=== PATIENT | female | born 1955 | race Caucasian/White ===

== ENCOUNTER 2019-08-18 12:03 | Emergency (ER) | payer BC ==
[2019-08-18] MEDS ORDERED: Sodium Chloride 0.9% 10 ML Syringe FLUSH PRN (12:35)
[2019-08-18] MEDS ORDERED: Ondansetron 4 MG/2 ML SDV IVPUSH ONE (12:35)
[2019-08-18] MEDS ORDERED: Famotidine 20 MG/2 ML SDV IVPUSH ONE (12:35)
[2019-08-18] MEDS ORDERED: Sodium Chloride 0.9% 1,000 ML IV SCH (12:45)
--- NOTE | 2019-08-18 13:46 | EDM.PDOC ---
ED HPI GENERAL MEDICAL PROBLEM - General Chief Complaint: Gastrointestinal Problem Stated Complaint: NAUSEA X 4DAYS Time Seen by Provider: 08/18/19 12:11 Source of Information: Reports: Patient, RN Notes Reviewed - History of Present Illness INITIAL COMMENTS - FREE TEXT/NARRATIVE: 64 year old female comes in with onset of nausea, vomiting and abd pain 3 1/2 days ago. She had severe repetitve vomiting for over 24 hours. She has been trying some clear liquids but did vomit again this am after trying some clear soup. Possible low grade fever. No current chest pain or difficulty breathing. Mild generalized abd achiness, no severe localized pain at this time. Generalized Pain Score (Numeric/FACES): 5 - Related Data Allergies Allergy/AdvReac Type Severity Reaction Status Date / Time No Known Allergies Allergy Verified 08/18/19 12:12 Home Meds: Home Meds Ondansetron [Zofran ODT] 4 mg PO Q8HR PRN #7 tab.dis 08/18/19 [Rx] Simvastatin [Zocor] 40 mg PO BEDTIME 08/18/19 [History] Past Medical History HEENT History: Reports: Other (See Below) Other HEENT History: eye lid surgery, glasses Cardiovascular History: Reports: High Cholesterol [employer] History: Reports: Musculoskeletal History: Reports: Other (See Below) Other Musculoskeletal History: l ankle and l knee surgery Social & Family History - Tobacco Use Smoking Status *Q: Never Smoker Second Hand Smoke Exposure: No - Caffeine Use Caffeine Use: Reports: Coffee, Soda - Recreational Drug Use Recreational Drug Use: No ED ROS GENERAL - Review of Systems Review Of Systems: See Below Constitutional: Reports: Chills HEENT: Reports: No Symptoms Respiratory: Reports: No Symptoms Cardiovascular: Denies: Chest Pain GI/Abdominal: Reports: Abdominal Pain, Nausea, Vomiting. Denies: Diarrhea, Hematochezia, Melena : Reports: No Symptoms Musculoskeletal: Denies: Neck Pain, Shoulder Pain, Back Pain Skin: Reports: No Symptoms Neurological: Reports: Dizziness. Denies: Numbness, Tingling, Trouble Speaking , Weakness ED EXAM, GI/ABD - Physical Exam Exam: See Below General Appearance: Alert, No Apparent Distress Throat/Mouth: Normal Inspection, Normal Oropharynx Head: Atraumatic. No: Facial Swelling Neck: Supple Respiratory/Chest: No Respiratory Distress, Lungs Clear, Normal Breath Sounds Cardiovascular: Regular Rate, Rhythm GI/Abdominal Exam: Soft, Tender (minimal mid abd tenderness). No: Guarding, Rebound Back Exam: No: CVA Tenderness (L), CVA Tenderness (R) Extremities: Normal Inspection, Normal Range of Motion. No: Pedal Edema, Leg Pain Neurological: Alert, Oriented, No Motor/Sensory Deficits Skin Exam: Warm, Dry, Normal Color Course - Vital Signs Last Recorded V/S: Last Vital Signs Temp 98.3 F 08/18/19 12:11 Pulse 72 08/18/19 12:11 Resp 15 08/18/19 12:11 BP 147/92 H 08/18/19 12:11 Pulse Ox 96 08/18/19 12:11 - Orders/Labs/Meds Labs: Laboratory Tests 08/18/19 08/18/19 Range/Units 12:50 12:50 WBC 10.61 H (3.98-10.04) K/mm3 RBC 4.96 (3.98-5.22) M/mm3 Hgb 14.1 (11.2-15.7) gm/dl Hct 41.0 (34.1-44.9) % MCV 82.7 (79.4-94.8) fl MCH 28.4 (25.6-32.2) pg MCHC 34.4 (32.2-35.5) g/dl RDW Std Deviation 49.6 H (36.4-46.3) fL Plt Count 439 H (182-369) K/mm3 MPV 10.7 (9.4-12.3) fl Neut % (Auto) 78.7 H (34.0-71.1) % Lymph % (Auto) 12.1 L (19.3-51.7) % [place] % (Auto) 9.0 (4.7-12.5) % Eos % (Auto) 0.1 L (0.7-5.8) Baso % (Auto) 0.1 (0.1-1.2) % Neut # (Auto) 8.36 H (1.56-6.13) K/mm3 Lymph # (Auto) 1.28 (1.18-3.74) K/mm3 [place] # (Auto) 0.95 H (0.24-0.36) K/mm3 Eos # (Auto) 0.01 L (0.04-0.36) K/mm3 Baso # (Auto) 0.01 (0.01-0.08) K/mm3 Sodium 135 L (136-145) mEq/L Potassium 3.4 L (3.5-5.1) mEq/L Chloride 97 L (98-107) mEq/L Carbon Dioxide 27 (21-32) mEq/L Anion Gap 14.4 (5-15) BUN 17 (7-18) mg/dL Creatinine 0.9 (0.55-1.02) mg/dL Est Cr Clr Drug Dosing 49.95 mL/min Estimated GFR (MDRD) > 60 (>60) mL/min BUN/Creatinine Ratio 18.9 H (14-18) Glucose 98 (80-115) mg/dL Calcium 10.1 (8.5-10.1) mg/dL Total Bilirubin 0.5 (0.2-1.0) mg/dL AST 70 H (15-37) U/L ALT 88 H (14-59) U/L Alkaline Phosphatase 69 (46-116) U/L Total Protein 7.4 (6.4-8.2) g/dl Albumin 3.6 (3.4-5.0) g/dl Globulin 3.8 gm/dL Albumin/Globulin Ratio 1.0 (1-2) Meds: Medications Discontinued Medications Generic Name Dose Route Start Last Admin Trade Name Freq PRN Reason Stop Dose Admin Famotidine 20 mg 08/18/19 12:35 08/18/19 12:51 Pepcid IVPUSH 08/18/19 12:36 20 mg ONETIME ONE Administration Sodium Chloride 1,000 mls @ 999 mls/hr 08/18/19 12:45 08/18/19 12:51 Normal Saline IV 999 mls/hr ONETIME CHRIS Administration Ondansetron HCl 4 mg 08/18/19 12:35 08/18/19 12:51 Zofran IVPUSH 08/18/19 12:36 4 mg ONETIME ONE Administration Sodium Chloride 10 ml 08/18/19 12:35 08/18/19 12:51 Saline Flush FLUSH 10 ml ASDIRECTED PRN Administration Keep Vein Open - Re-Assessments/Exams Free Text/Narrative Re-Assessment/Exam: 08/20/19 13:56 Labs came back relatively normal, feeling better after some IV fluid and meds, discharge instr. as documented. 08/20/19 13:57 flat and upright abd nl Departure - Departure Time of Disposition: 15:03 Disposition: Home, Self-Care 01 Condition: Fair Clinical Impression: Abdominal pain, Vomiting - Discharge Information Prescriptions: Ondansetron [Zofran ODT] 4 mg PO Q8HR PRN #7 tab.dis PRN Reason: Nausea/Vomiting Instructions: Abdominal Pain, Adult, [id number] Referrals: PCP,Not In Area [Primary Care Provider] - Forms: ED Department Discharge Additional Instructions: clear liquids until tomorrow am, than very careful bland diet as tolerated. zofran q 8 hr if needed for any further nausea or vomiting, script has been sent to [facility] in the [place] [facility] [place]. Follow up with your regular medical provider when you get home if sx have not completely resolved. Return to ED as needed.
--- NOTE | 2019-08-18 14:45 | CR ---
Abdomen: Supine and upright views of the abdomen were obtained. Comparison: No prior abdominal x-ray. Scoliosis and mild degenerative change are noted within the spine. Scattered gas within small bowel and colon is seen which does not appear dilated and is felt to be within normal limits. No free air is seen. Calcified nodule is noted within the left upper chest possibly due to calcified granuloma within the lung. No soft tissue abnormality is seen. Impression: 1. Incidental findings. Nothing acute is seen. Diagnostic code #2
== END 2019-08-18 15:23 | disposition home or self-care (01) ==
LOC: JD.ED 12:03
DX: R11.2 Nausea with vomiting, unspecified (principal); R10.84 Generalized abdominal pain; E78.00 Pure hypercholesterolemia, unspecified; Z79.899 Other long term (current) drug therapy
CPT/HCPCS: 36415; 74019; 80053; 85025; 96361; 96374; 96375; 99284; J2405; J3490; J7040; 99283